=== PATIENT | male | born 1990 | race Caucasian/White ===

== ENCOUNTER 2016-10-25 00:29 | Emergency (ER) | payer OTHER ==
[2016-10-25] MEDS ORDERED: SODIUM CHLORIDE 0.9% 1,000 ML IV ONE (01:00)
[2016-10-25] MEDS ORDERED: KETOROLAC 30 MG/ML VIAL IVP STA (01:00)
[2016-10-25] MEDS ORDERED: KETOROLAC 30 MG/ML VIAL ONE (01:09)
[2016-10-25 01:23] LABS: BILIRUBIN,URINE NEGATIVE (NEGATIVE)
[2016-10-25 01:24] LABS: BASOPHILS % (AUTO) 0.5 %; EOSINOPHILS # (AUTO) 0.1 10^3/uL (0.0-0.7); EOSINOPHILS % (AUTO) 0.9 %; HCT - HEMATOCRIT 43.2 % (42.0-52.0); HGB - HEMOGLOBIN 14.9 g/dL (14.0-18.0); LYMPHOCYTES # (AUTO) 2.2 10^3/uL (1.5-3.5); LYMPHOCYTES % (AUTO) 35.1 %; MEAN CORPUSCULAR HEMOGLOBIN 32.1 pg (27.0-31.0); MEAN CORPUSCULAR HGB CONC 34.5 g/dL (32.0-36.0); MEAN CORPUSCULAR VOLUME 93.1 fL (80.0-94.0); MEAN PLATELET VOLUME 7.7 fL (7.4-11.4); MONOCYTES # (AUTO) 0.9 10^3/uL (0.0-1.0); MONOCYTES % (AUTO) 14.4 %; NEUTROPHILS % (AUTO) 49.1 %; RED BLOOD COUNT 4.64 10^6/uL (4.70-6.10); RED CELL DISTRIBUTION WIDTH 12.9 % (12.0-15.0); UNCORRECTED WHITE BLOOD COUNT 6.2 x10^3/uL; WHITE BLOOD COUNT 6.2 x10^3/uL (4.8-10.8)
[2016-10-25 01:27] LABS: UA CHARGE (STRIP ONLY) YES; UR CULTURE IF IND NOT INDICATED
[2016-10-25 01:34] LABS: ALBUMIN/GLOBULIN RATIO 1.6 (1.0-2.2); BILIRUBIN,TOTAL 0.7 mg/dL (0.2-1.0); CALCIUM 9.1 mg/dL (8.5-10.3); CREATININE 1.2 mg/dL (0.6-1.2); POTASSIUM 3.7 mmol/L (3.5-5.0); TOTAL PROTEIN 7.3 g/dL (6.7-8.2)
[2016-10-25] MEDS ORDERED: BACITRACIN OINT TOP STA (01:54)
[2016-10-25] MEDS ORDERED: BACITRACIN OINT TOP ONE (02:14)
[2016-10-25 02:25] VITALS: BP 110/50
[2016-10-25] MEDS ORDERED: diazePAM 5 MG TABLET PO STA (02:25)
[2016-10-25] MEDS ORDERED: diazePAM 5 MG TABLET PO ONE (02:32)
--- NOTE | 2016-10-25 02:33 | ED Physician Documentation ---
History of Present Illness - Stated complaint Stated Complaint: BODY,JOINT ACHES - Chief complaint Chief Complaint: General - History obtained from History obtained from: Patient, Friend - Additonal information Additional information: Patient is a healthy 26-year-old man who presents with a complaint of generalized body aches and myalgias onset today. He felt a little unwell tried to sleep but was unable to do so. He denies any overt fever or shaking chills. There is no ear nose and throat symptoms and is no cough or shortness of breath. He does not have abdominal pain, nausea, vomiting constipation, diarrhea or lower urinary symptoms. He has not been around anybody sick. He has a small abrasion to the right wrist that does not appear to be obviously infected. Review of systems: For pertinent positive and negatives in the review of systems please see the history of present illness, otherwise all other systems have been reviewed and are negative. Dragon disclaimer: Parts of this medical record were created using voice recognition technology. Because of the inherent limitations of this system, occasional same sounding word substitutions do occur and persist despite proofreading. Please read the document for context. Review of Systems Constitutional: reports: Myalgias, Fatigue. denies: Fever, Chills Throat: denies: Sore throat Cardiac: denies: Chest pain / pressure Respiratory: denies: Dyspnea GI: denies: Abdominal Pain PD PAST MEDICAL HISTORY - Past Medical History Past Medical History: No - Past Surgical History Past Surgical History: No - Present Medications Home Medications: Ambulatory Orders Medication Instructions Recorded Confirmed No Known Home Medications [No 10/25/16 10/25/16 Known Home Medications] - Allergies Allergies/Adverse Reactions: Allergies Allergy/AdvReac Type Severity Reaction Status Date / Time No Known Drug Allergies Allergy Verified 10/25/16 00:36 - Social History Does the pt smoke?: No Smoking Status: Never smoker Does the pt drink ETOH?: Yes ETOH Use: Beer Does the pt have substance abuse?: No - Immunizations Immunizations are current?: Yes - POLST Patient has POLST: No PD ED PE NORMAL - Vitals Vital signs reviewed: Yes - General General: Alert and oriented X 3, No acute distress, Well developed/nourished - HEENT HEENT: Atraumatic, PERRL, Ears normal, Dentition benign - Neck Neck: Supple, no meningeal sign, No bony TTP, No JVD, No bruit - Cardiac Cardiac: RRR, No murmur, No gallop, No rub - Respiratory Respiratory: No respiratory distress, Clear bilaterally - Abdomen Abdomen: Normal bowel sounds, Soft, Non tender, Non distended - Back Back: No CVA TTP - Derm Derm: Normal color, Warm and dry, No rash - Extremities Extremities: No deformity, No tenderness to palpate, Normal ROM s pain - Neuro Neuro: Alert and oriented X 3, assembler seat 2-12 intact, No motor deficit, No sensory deficit - Psych Psych: Normal mood, Normal affect Results - Vitals Vitals: Vital Signs - 24 hr 10/25/16 10/25/16 00:34 02:23 Temperature 37.0 C Heart Rate 59 L 60 Respiratory 16 16 Rate Blood Pressure 139/65 H 110/50 L O2 Saturation 99 98 Oxygen O2 Source Room air - Labs Labs: Laboratory Tests 10/25/16 10/25/16 10/25/16 01:10 01:10 01:15 WBC 6.2 RBC 4.64 L Hgb 14.9 Hct 43.2 MCV 93.1 MCH 32.1 H MCHC 34.5 RDW 12.9 Plt Count 231 MPV 7.7 Neut # 3.0 Lymph # 2.2 Cecil # 0.9 Eos # 0.1 Baso # 0.0 Absolute Nucleated RBC 0.00 Nucleated RBCs 0.0 Sodium Potassium Chloride Carbon Dioxide Anion Gap BUN Creatinine Estimated GFR (MDRD) Glucose Calcium Total Bilirubin AST ALT Alkaline Phosphatase Total Creatine Kinase Total Protein Albumin Globulin Albumin/Globulin Ratio Lipase Urine Color YELLOW Urine Clarity CLEAR Urine pH 7.0 Ur Specific [place] 1.015 Urine Protein NEGATIVE Urine Glucose (UA) NEGATIVE Urine Ketones NEGATIVE Urine Occult Blood NEGATIVE Urine Nitrite NEGATIVE Urine Bilirubin NEGATIVE Urine Urobilinogen 0.2 (NORMAL) Ur Leukocyte Esterase NEGATIVE Ur Microscopic Review NOT INDICATED Urine Culture Comments NOT INDICATED Influenza A (Rapid) Negative Influenza B (Rapid) Negative Influenza Types A,B Ag - 10/25/16 01:15 WBC RBC Hgb Hct MCV MCH MCHC RDW Plt Count MPV Neut # Lymph # Cecil # Eos # Baso # Absolute Nucleated RBC Nucleated RBCs Sodium 138 Potassium 3.7 Chloride 101 Carbon Dioxide 28 Anion Gap 9.0 BUN 23 H Creatinine 1.2 Estimated GFR (MDRD) 74 L Glucose 83 Calcium 9.1 Total Bilirubin 0.7 AST 33 ALT 40 Alkaline Phosphatase 48 Total Creatine Kinase 350 H Total Protein 7.3 Albumin 4.5 Globulin 2.8 Albumin/Globulin Ratio 1.6 Lipase 29 Urine Color Urine Clarity Urine pH Ur Specific [place] Urine Protein Urine Glucose (UA) Urine Ketones Urine Occult Blood Urine Nitrite Urine Bilirubin Urine Urobilinogen Ur Leukocyte Esterase Ur Microscopic Review Urine Culture Comments Influenza A (Rapid) Influenza B (Rapid) Influenza Types A,B Ag PD MEDICAL DECISION MAKING - ED course Complexity details: reviewed results, re-evaluated patient, considered differential, d/w patient ED course: Well-appearing healthy young male presents with myalgias and joint pain starting today. He does not have any other clear-cut signs or symptoms of infection nor does he have any infectious findings on exam. Is a small abrasion to the right wrist that is without any obvious evidence of infection. The right wrist was dressed with bacitracin and covered in gauze. The patient was given 1 L of IV fluid and 30 mg of Toradol and feels much better. Lab work shows a normal CBC. There is mild increase in the BUN and mild increase in the total CK. Urine is negative for infection and his influenza titers are negative as well. At this point in time I am recommending that he avoid exercise for couple days increase his hydration significantly and and watch for any concerning signs or symptoms. Disposition: To home Clinical impression: 1. Myalgias 2. Suspect possible viral syndrome 3. Possible mild dehydration with minimal elevation of CK Departure - Departure Disposition: 01 Home, Self Care Clinical Impression: Myalgia and myositis, unspecified, Viral syndrome Condition: Good Instructions: ED Muscle Aching, ED Viral Syndrome Forms: Activity restrictions
== END 2016-10-25 02:33 | disposition home or self-care (01) ==
LOC: ED 00:29
DX: M60.9 Myositis, unspecified (principal); B34.9 Viral infection, unspecified
CPT/HCPCS: 36415; 80053; 81003; 82550; 83690; 85025; 87275; 87276; 96374; 99284; A9270; 81001; 87086